=== PATIENT | female | born 1990 | race African-American/Black ===

== ENCOUNTER 2020-06-28 21:09 | Emergency (ER) | payer MEDICAID ==
--- NOTE | 2020-06-28 21:24 | ER Document Report ---
ED Medical Screen (RME) - General Chief Complaint: Abdominal Pain Stated Complaint: ABDOMINAL PAIN Time Seen by Provider: 06/28/20 21:17 Mode of Arrival: Ambulatory Information source: Patient Notes: 29-year-old female patient presented to the emergency department chief complaint of mid abdominal pain that radiates to her right lower quadrant and right flank area. She states pain started today. She reports mild nausea with cough, denies any vomiting or diarrhea. Denies any dysuria or abnormal vaginal discharge. Abdomen soft, nontender. I have greeted and performed a rapid initial assessment of this patient. A comprehensive ED assessment and evaluation of the patient, analysis of test results and completion of the medical decision making process will be conducted by additional ED providers. I have specifically instructed the patient or family members with the patient to immediately return to any nursing staff should anything change in the patient's condition or with their chief complaint. - Related Data Allergies/Adverse Reactions: No Known Allergies Allergy (Verified 10/12/19 19:02) Past Medical History - Social History Frequency of alcohol use: Occasional Drug Abuse: None Pulmonary Medical History: Reports: Hx Asthma Past Surgical History: Reports: Other - Thyroglossal cyst removal - Immunizations Immunizations up to date: Yes Hx Diphtheria, Pertussis, Tetanus Vaccination: Yes Physical Exam - Vital signs Vitals: Temp Pulse Resp BP Pulse Ox 99.0 F 104 H 16 128/82 H 99 06/28/20 21:12 06/28/20 21:12 06/28/20 21:12 06/28/20 21:12 06/28/20 21:12 Course - Vital Signs Vital signs: Temp Pulse Resp BP Pulse Ox 99.0 F 104 H 16 128/82 H 99 06/28/20 21:12 06/28/20 21:12 06/28/20 21:12 06/28/20 21:12 06/28/20 21:12
[2020-06-28 22:02] LABS: APPEARANCE,URINE CLEAR; BILIRUBIN,URINE NEGATIVE (NEGATIVE); COLOR,URINE YELLOW; GLUCOSE, URINE NEGATIVE (NEGATIVE); KETONES,URINE TRACE mg/dL (NEGATIVE); LEUKOCYTE ESTERASE,URINE NEGATIVE (NEGATIVE); NITRITE,URINE NEGATIVE (NEGATIVE); PROTEIN,URINE NEGATIVE (NEGATIVE); URINE SPECIFIC GRAVITY 1.017
[2020-06-29] MEDS ORDERED: FENTANYL CITRATE INJ/PF 100 MCG/2 ML AMPUL ONE (05:05)
[2020-06-29] MEDS ORDERED: ONDANSETRON HCL INJ/PF 4 MG/2 ML SDV ONE (05:07)
[2020-06-29] MEDS ORDERED: NORMAL SALINE 1000 ML 1,000 ML IV ONE (05:08)
[2020-06-29] MEDS ORDERED: ONDANSETRON HCL INJ/PF 4 MG/2 ML SDV IV ONE (05:08)
[2020-06-29] MEDS ORDERED: FENTANYL CITRATE INJ/PF 100 MCG/2 ML AMPUL IV ONE (05:08)
--- NOTE | 2020-06-29 05:18 | ER Document Report ---
ED GI/ - General Chief Complaint: Abdominal Pain Stated Complaint: ABDOMINAL PAIN Time Seen by Provider: 06/28/20 21:17 Mode of Arrival: Ambulatory - Related Data Allergies/Adverse Reactions: No Known Allergies Allergy (Verified 10/12/19 19:02) Past Medical History - General Information source: Patient - Social History Smoking Status: Current Some Day Smoker Frequency of alcohol use: Occasional Drug Abuse: None Family History: Reviewed & Not Pertinent Pulmonary Medical History: Reports: Hx Asthma Past Surgical History: Reports: Other - Thyroglossal cyst removal - Immunizations Immunizations up to date: Yes Hx Diphtheria, Pertussis, Tetanus Vaccination: Yes Physical Exam - Vital signs Vitals: Temp Pulse Resp BP Pulse Ox 99.0 F 104 H 16 128/82 H 99 06/28/20 21:12 06/28/20 21:12 06/28/20 21:12 06/28/20 21:12 06/28/20 21:12 Course - Vital Signs Vital signs: Temp Pulse Resp BP Pulse Ox 99.0 F 104 H 16 128/82 H 99 06/28/20 21:12 06/28/20 21:12 06/28/20 21:12 06/28/20 21:12 06/28/20 21:12 - Laboratory Laboratory results interpreted by me: 06/28/20 21:25 Urine Ketones TRACE H Urine Urobilinogen 2.0 H
--- NOTE | 2020-06-29 05:30 | ER Document Report ---
ED GI/ - General Mode of Arrival: Ambulatory <NADIYA SOARES - Last Filed: 06/29/20 07:41> <PEMA LINDER - Last Filed: 06/29/20 15:47> - General Chief Complaint: Abdominal Pain Stated Complaint: ABDOMINAL PAIN Time Seen by Provider: 06/28/20 21:17 Notes: Patient is a 29-year-old female that comes emergency department for chief complaint of sharp abdominal pain that started at 3 PM, she states pain is worsened throughout the afternoon and evening and has started to become much more painful in the right lower abdomen with some radiation to the right flank. She reports some nausea but denies vomiting. She states pain is now much worse with any movement. She denies vaginal bleeding or discharge, dysuria, fever. She denies any abdominal surgeries. LMP within the past month. Past medical history also includes asthma and thyroglossal duct cyst removal. She denies medical history otherwise. (NADIYA SOARES) - Related Data Allergies/Adverse Reactions: No Known Allergies Allergy (Verified 10/12/19 19:02) Past Medical History - General Information source: Patient - Social History Smoking Status: Current Some Day Smoker Frequency of alcohol use: Occasional Drug Abuse: None Lives with: Family Family History: Reviewed & Not Pertinent Pulmonary Medical History: Reports: Hx Asthma Past Surgical History: Reports: Other - Thyroglossal duct cyst removal - Immunizations Immunizations up to date: Yes Hx Diphtheria, Pertussis, Tetanus Vaccination: Yes <NADIYA SOARES - Last Filed: 06/29/20 07:41> Review of Systems - Review of Systems Constitutional: No symptoms reported EENT: No symptoms reported Cardiovascular: No symptoms reported Respiratory: No symptoms reported Gastrointestinal: See HPI Genitourinary: No symptoms reported Female Genitourinary: No symptoms reported Musculoskeletal: No symptoms reported Skin: No symptoms reported Hematologic/Lymphatic: No symptoms reported Neurological/Psychological: No symptoms reported <NADIYA SOARES - Last Filed: 06/29/20 07:41> Physical Exam <NADIYA SOARES - Last Filed: 06/29/20 07:41> - Vital signs Vitals: Temp Pulse Resp BP Pulse Ox 99.0 F 104 H 16 128/82 H 99 06/28/20 21:12 06/28/20 21:12 06/28/20 21:12 06/28/20 21:12 06/28/20 21:12 - Notes Notes: GENERAL: Alert, interacts well. No severe distress HEAD: Normocephalic, atraumatic. EYES: Pupils equal, round, and reactive to light. Extraocular movements intact. ENT: Oral mucosa moist, tongue midline. Oropharynx unremarkable. Airway patent. NECK: Full range of motion. Supple. Trachea midline. No lymphadenopathy. LUNGS: Clear to auscultation bilaterally, no wheezes, rales, or rhonchi. No respiratory distress. Non-tender chest wall. HEART: Regular rate and rhythm. No murmur ABDOMEN: There is some tenderness in the mid abdomen which is mild, patient is significantly tender in the right lower abdomen and does have positive McBurney's point tenderness with wincing. Upper abdomen is benign. Bowel sounds present throughout. No significant distention. EXTREMITIES: Moves all 4 extremities spontaneously. No edema, normal radial and dorsalis pedis pulses bilaterally. No cyanosis. BACK: no cervical, thoracic, lumbar midline tenderness. No saddle anesthesia, normal distal neurovascular exam. Moves all extremities in full range of motion. NEUROLOGICAL: Alert and oriented x3. Normal speech. Cranial nerves II through XII grossly intact. Strength 5/5 in all extremities. PSYCH: Normal affect, normal mood. SKIN: Warm, dry, normal turgor. No rashes or lesions noted. (NADIYA SOARES) Course - Laboratory Result Diagrams: 06/29/20 05:23 06/29/20 05:23 <NADIYA SOARES - Last Filed: 06/29/20 07:41> - Laboratory Result Diagrams: 06/29/20 05:23 06/29/20 05:23 <PEMA LINDER - Last Filed: 06/29/20 15:47> - Re-evaluation Re-evalutation: Patient's reported history is concerning (with initial pain in the mid abdomen with developing right lower quadrant pain as the day progressed), pain is reproducible with movement, ambulating, and patient is notably tender on palpation especially in the right lower quadrant. CBC nonspecific, chemistry nonspecific, urine unremarkable, negative. Discussed with patient. Because of her worsening symptoms and focal pain CAT scan will be performed to attempt to evaluate for acute appendicitis. (NADIYA SOARES) 06/29/20 08:19 Report received on the patient. Awaiting CT 06/29/20 09:34 I spoke with the patient. 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 Patient has no knowledge of ovarian cysts or teratomas previously. I will obtain an ultrasound to evaluate for torsion or mass-effect on the ovary and pelvis. We will plan to discuss with DERMATOLOGIST MANAGING PARTNER once the ultrasound has returned 06/29/20 13:[address] Le DERMATOLOGIST MANAGING PARTNER about the patient. She called over and spoke with the radiologist about the ultrasound and did review the ultrasound and imaging. 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 Le at 1:15 PM. Patient is not currently having significant pain states the pain seems to come and go. I spoke with her about the plan discussed with Dr. Le for tumor markers, COVID study and likely outpatient follow-up on Thursday to schedule surgery. Patient is in agreement with this plan. I discussed this again with Dr. Le who will place the orders that she requires on the patient and will come down and speak with the patient prior to discharge 06/29/20 15:30 Patient has been evaluated by Dr. Le, may be discharged home with pain and nausea medication they have scheduled an appointment for the patient next Thursday with Dr. Miguel Vega in the office. Patient is in agreement with this plan 06/29/20 15:31 Patient does not have any significant pain at this time nor is she having any urinary difficulty (PEMA LINDER) - Vital Signs Vital signs: Temp Pulse Resp BP Pulse Ox 99.2 F 86 16 119/78 98 06/29/20 13:22 06/29/20 13:22 06/29/20 13:22 06/29/20 13:22 06/29/20 13:22 - Laboratory Laboratory results interpreted by me: 06/28/20 06/29/20 06/29/20 21:25 05:23 05:23 MCH 33.8 H Lymph % (Auto) 7.9 L Seg Neutrophils % 87.1 H Potassium 3.5 L BUN 5 L Total Bilirubin 1.9 H Carcinoembryonic Ag Urine Ketones TRACE H Urine Urobilinogen 2.0 H 06/29/20 05:23 MCH Lymph % (Auto) Seg Neutrophils % Potassium BUN Total Bilirubin Carcinoembryonic Ag 52.20 H Urine Ketones Urine Urobilinogen Discharge <NADIYA SOARES - Last Filed: 06/29/20 07:41> <DEVONTEPEMA BERKOWITZ Mack - Last Filed: 06/29/20 15:47> - Discharge Clinical Impression: Abdominal pain, RLQ (right lower quadrant), 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 Pain medication as prescribed do not drive if taking narcotics for pain. Return for worsening or uncontrolled pain at home Prescriptions: Oxycodone HCl/Acetaminophen [Percocet 5-325 mg Tablet] 1 tab PO Q4H PRN #15 tab PRN Reason: Ondansetron [Zofran Odt 4 mg Tablet] 1 - 2 tab PO Q4H PRN #15 tab.rapdis PRN Reason: For Nausea/Vomiting Referrals: CHEL VEGA MD [ACTIVE STAFF] - Follow up as needed
[2020-06-29 05:41] LABS: ABSOLUTE EOSINOPHILS # (AUTO) 0.1 10^3/uL (0.0-0.6); ABSOLUTE LYMPHOCYTES (AUTO) 0.7 10^3/uL (0.5-4.7); ABSOLUTE MONOCYTES (AUTO) 0.4 10^3/uL (0.1-1.4); ABSOLUTE NEUT (AUTO) 7.9 10^3/uL (1.7-8.2); BASOPHILS % (AUTO) 0.1 % (0-2); HEMATOCRIT 38.5 % (36.0-47.0); HEMOGLOBIN 13.6 g/dL (12.0-15.5); LYMPHOCYTES % (AUTO) 7.9 % (13-45); MEAN CORPUSCULAR HEMOGLOBIN 33.8 pg (27.0-33.4); MEAN CORPUSCULAR HGB CONC 35.4 g/dL (32.0-36.0); MEAN CORPUSCULAR VOLUME 95 fl (80-97); MONOCYTES % (AUTO) 3.9 % (3-13); PLATELET COUNT 252 10^3/uL (150-450); RED BLOOD COUNT 4.03 10^6/uL (3.72-5.28); RED CELL DISTRIBUTION WIDTH 12.9 % (11.5-14.0); SEGMENTED NEUTROPHILS % (AUTO) 87.1 % (42-78); TOTAL CELLS COUNTED % (AUTO) 100 %; WHITE BLOOD COUNT 9.1 10^3/uL (4.0-10.5)
[2020-06-29 06:00] LABS: ALBUMIN 4.2 g/dL (3.5-5.0); ALKALINE PHOSPHATASE 61 U/L (38-126); ANION GAP 10 (5-19); ASPARTATE AMINO TRANSFERASE 15 U/L (14-36); BILIRUBIN,DIRECT 0.3 mg/dL (0.0-0.4); BILIRUBIN,TOTAL 1.9 mg/dL (0.2-1.3); BLOOD UREA NITROGEN 5 mg/dL (7-20); CALCIUM 8.9 mg/dL (8.4-10.2); CARBON DIOXIDE 24 mmol/L (22-30); CHLORIDE 105 mmol/L (98-107); GLUCOSE 110 mg/dL (75-110); POTASSIUM 3.5 mmol/L (3.6-5.0); TOTAL PROTEIN 7.2 g/dL (6.3-8.2)
[2020-06-29] MEDS ORDERED: MORPHINE SULFATE 10 MG/ML INJ IV ONE (07:10)
--- NOTE | 2020-06-29 13:45 | PDOC CONSULTATION ---
Consultation Consult Date: 06/29/20 Attending physician:: PEMA LINDER Provider Consulted: LUKE BURKS Consult reason:: abdominal pain, adnexal mass, dermoid History of Present Illness Admission Date/PCP: 06/29/2020 Patient complains of: abdominal pain History of Present Illness: AUGUSTINE BURCIAGA is a 29 year old female (h/o x 2, SAB x2, EAB x 1) who reports pain began at 3pm yesterday. She reports that yesterday pain increased and is still present today but tolerable without medication now. She reports occasional nausea. SHe reports regular menses and reports menses in the last month. She denies any other concerns and desires to have food now. Past Medical History LMP: 05/28/20 Gynecological Infection: No Obstetrical History: none - (see HPI) Pulmonary Medical History: Reports: Asthma Social History Information Source: Patient Lives with: Family Smoking Status: Current Some Day Smoker Electronic Cigarette use?: No Frequency of Alcohol Use: None Hx Recreational Drug Use: No Drugs: None Hx Prescription Drug Abuse: No Family History Family History: Reviewed & Not Pertinent Parental Family History Reviewed: No Children Family History Reviewed: NA Sibling(s) Family History Reviewed.: NA Medication/Allergy Allergies/Adverse Reactions: No Known Allergies Allergy (Verified 10/12/19 19:02) Review of Systems Constitutional: ABSENT: fever(s), weight gain Cardiovascular: ABSENT: chest pain, dyspnea on exertion, edema, orthropnea, palpitations Gastrointestinal: ABSENT: abdominal pain, constipation, diarrhea, hematemesis, hematochezia, nausea, vomiting Genitourinary: ABSENT: dysuria, hematuria Integumentary: ABSENT: rash, wounds Psychiatric: ABSENT: anxiety, depression, homidical ideation, suicidal ideation Hematologic/Lymphatic: ABSENT: easy bleeding, easy bruising Physical Exam - Physical Exam Vital Signs: Temp Pulse Resp BP Pulse Ox 99.2 F 86 16 119/78 98 06/29/20 13:22 06/29/20 13:22 06/29/20 13:22 06/29/20 13:22 06/29/20 13:22 Intake & Output 06/28/20 06/29/20 06/30/20 06:59 06:59 06:59 Intake Total 1000 Balance 1000 Weight 49.3 kg General appearance: PRESENT: no acute distress, well-developed, well-nourished Head exam: PRESENT: atraumatic, normocephalic Neck exam: PRESENT: full ROM. ABSENT: carotid bruit, JVD, lymphadenopathy, thyromegaly Respiratory exam: PRESENT: clear to auscultation mabel, symmetrical, unlabored Cardiovascular exam: PRESENT: RRR. ABSENT: diastolic murmur, rubs, systolic murmur Pulses: PRESENT: normal dorsalis pedis pul, +2 pedal pulses bilateral GI/Abdominal exam: PRESENT: guarding, normal bowel sounds, soft, tenderness - quarding some, +ttp, no rebound. no acute abdomen.. ABSENT: distended, mass, organolmegaly, rebound Rectal exam: PRESENT: deferred Extremities exam: PRESENT: full ROM. ABSENT: calf tenderness, clubbing, pedal edema Musculoskeletal exam: PRESENT: ambulatory Neurological exam: PRESENT: alert, awake, oriented to person, oriented to place, oriented to time, oriented to situation, CN II-XII grossly intact. ABSENT: motor sensory deficit Psychiatric exam: PRESENT: appropriate affect, normal mood. ABSENT: homicidal ideation, suicidal ideation Skin exam: PRESENT: dry, intact, warm. ABSENT: cyanosis, rash Result Laboratory Results: 06/29/20 05:23 06/29/20 05:23 06/28/20 06/29/20 06/29/20 21:25 05:23 05:23 WBC 9.1 RBC 4.03 Hgb 13.6 Hct 38.5 MCV 95 MCH 33.8 H MCHC 35.4 RDW 12.9 Plt Count 252 Seg Neutrophils % 87.1 H Sodium 138.8 Potassium 3.5 L Chloride 105 Carbon Dioxide 24 Anion Gap 10 BUN 5 L Creatinine 0.62 Est GFR ( Amer) > 60 Glucose 110 Calcium 8.9 Total Bilirubin 1.9 H AST 15 Alkaline Phosphatase 61 Total Protein 7.2 Albumin 4.2 Lipase 40.3 Urine Color YELLOW Urine Appearance CLEAR Urine pH 7.0 Ur Specific [place] 1.017 Urine Protein NEGATIVE Urine Glucose (UA) NEGATIVE Urine Ketones TRACE H Urine Blood NEGATIVE Urine Nitrite NEGATIVE Ur Leukocyte Esterase NEGATIVE Urine WBC (Auto) 1 Urine RBC (Auto) 0 Status: Image reviewed by me Assessment & Plan - Diagnosis (1) Dermoid cyst Is this a current diagnosis for this admission?: Yes Plan: Dermoid cyst, normal flow bilateral ovaries. 3x6cm right dermoid on CT and US. Reviewed with radiology. Reviewed findings and labs with patient and typical treatment plan for dermoid. Plan tumor markers. Pt able to void and stool without difficulty and is hungry. mild pain on exam a nd stable for discharge with interval surgery. COVID outpatient send out screening requested. She will f/u in the office on Thursday with Dr. Vega for re-eval and discussion of surgical intervention. D/w [place] and ok to be off work until procedure and ok to have pain meds and zofran if needed. Reviewed precautions to return to the ER if worsening pain or unable to tolerate po intake etc. - Time Time Spent: 30 to 50 Minutes Smoking Cessation Education: 3 to 10 minutes Medications reviewed and adjusted accordingly: Yes Anticipated Discharge Disposition: Home, Self Care Anticipated Discharge Timeframe: within 24 hours - Inpatient Certification Based on my medical assessment, after consideration of the patient's comor bidities, presenting symptoms, or acuity I expect that the services needed warrant INPATIENT care.: No I certify that my determination is in accordance with my understanding of Medicare's requirements for reasonable and necessary INPATIENT services [42 CFR 412.3e].: No - Plan Summary Plan Summary: Discharge to home with interval outpatient surgery.
[2020-06-29 16:00] VITALS: BP 115/72
--- NOTE | 2020-06-29 17:48 | RADIOLOGY REPORT (SQ) ---
EXAM DESCRIPTION: [facility]: CT ABDOMEN PELVIS WITH IV CONTRAST CLINICAL HISTORY: 29 years Female; RLQ pain; TECHNIQUE: CT of the abdomen and pelvis using intravenous contrast. Oral contrast was also given. All CT scans at this facility use dose modulation, iterative reconstruction, and/or weight based dosing when appropriate to reduce radiation dose to as low as reasonably achievable. COMPARISON: None. FINDINGS: Abdomen: Stomach: No significant distention or surrounding edema. Liver:No focal lesions. No intrahepatic ductal distention. Gallbladder:Nondistended Pancreas:Within normal limits Spleen:Within normal limits Right kidney:No hydronephrosis. No focal lesion. Left kidney:No hydronephrosis. No focal lesion. Adrenal glands:Within normal limits Vascular structures:Within normal limits Pelvis: Small bowel:No significant distention. Appendix:Within normal limits Colon:No distention or acute pericolonic edema. Oral contrast is seen down to the distal colon, with no evidence for obstruction. No free intraperitoneal fluid or air. Bones: No acute bone findings. Bladder: Unremarkable. In the right adnexal region there is a lesion 4 x 4.1 x 3.9 cm containing a mixture of fat, soft tissue density, and calcification, consistent with teratoma. Uterine enhancement is somewhat heterogeneous; cannot exclude a uterine fibroid. IMPRESSION: 1. 4 cm right adnexal lesion, consistent with teratoma. Consider surgical evaluation. 2. Appendix is normal. No acute bowel findings.
--- NOTE | 2020-06-30 15:16 | RADIOLOGY REPORT (SQ) ---
EXAM DESCRIPTION: U/S NON OB PEL TV W/DOPPLER IMAGES COMPLETED DATE/TIME: 06/29/2020 11:18 am REASON FOR STUDY: right adnexal teratoma COMPARISON: None. TECHNIQUE: Dynamic and static grayscale images acquired of the pelvis via transvaginal approach and recorded on PACS. Additional selected color Doppler and spectral images recorded. LIMITATIONS: None. FINDINGS: UTERUS: Contour normal. No mass. ENDOMETRIAL STRIPE: No focal or generalized thickening. No masses. CERVIX: No nabothian cysts. RIGHT OVARY AND DOPPLER: Normal size. 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 Normal arterial vas cular flow without evidence for torsion. LEFT OVARY AND DOPPLER: Normal size. No worrisome masses. Normal arterial vascular flow without evide nce for torsion. FREE FLUID: None noted. OTHER: No other significant finding. 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 No evid ence of ovarian torsion. COMMENT: Findings discussed with Dr. Le. TECHNICAL DOCUMENTATION: JOB ID: [id number] [employer]- All Rights Reserved Rev-03/12 Reading location - IP/workstation name: [email or web address]
== END 2020-06-29 16:14 | disposition home or self-care (01) ==
LOC: ER 21:09
DX: D36.7 Benign neoplasm of other specified sites (principal); R10.31 Right lower quadrant pain; R11.0 Nausea; F17.200 Nicotine dependence, unspecified, uncomplicated; Z20.828 Contact with and (suspected) exposure to other viral communicable diseases
CPT/HCPCS: 99285; 96361; 96374; 96375; 36415; 86301; 86304; 82150; 82378; 83690; 85025; 87635; 81025; 80053; 81001; 76830; 93976; 74177; J3010; J2270; J2405; J7030; C9803